=== PATIENT | male | born 1980 | race Caucasian/White ===

== ENCOUNTER 2019-11-26 07:53 | Emergency (ER) | payer MEDICAID ==
[~2019-11-26] VITALS: Ht 162.6 cm; Wt 72.6 kg
[~2019-11-26 07:53] MED LIST: FOL1 PO; THI100 PO
[2019-11-26 08:21] VITALS: Ht 162.6 cm; Wt 72.6 kg
[2019-11-26 09:03] LABS: BASOPHIL % 0.8 % (0-2); PLATELET COUNT 153 x10^3mcL (130-400); RED CELL DISTRIBUTION WIDTH 13.3 % (11.5-14.5)
[2019-11-26 09:27] LABS: CALCIUM 8.4 mg/dL (8.5-10.1); CHLORIDE SERUM 98 mmol/L (98-107); CREATININE SERUM 0.8 mg/dL (0.7-1.3); GFR1 > 60 mL/min; GLUCOSE SERUM 135 mg/dL (74-106); POTASSIUM SERUM 3.7 mmol/L (3.5-5.1); SODIUM SERUM 135 mmol/L (136-145)
[2019-11-26 09:32] LABS: ALBUMIN 3.8 g/dL (3.4-5.0); ALKALINE PHOSPHATASE 196 U/L (46-116); ALT/SGPT 225 U/L (16-63); AST/SGOT 245 U/L (15-37); BILIRUBIN TOTAL 1.5 mg/dL (0.20-1.00); TOTAL PROTEIN, SERUM 7.4 g/dL (6.4-8.2)
[2019-11-26 10:20] VITALS: BP 125/74
== END 2019-11-26 10:20 | disposition home or self-care (01) ==
LOC: ED 07:53
PROVIDERS: Emergency Medicine
DX: K52.9 Noninfective gastroenteritis and colitis, unspecified (principal); R07.89 Other chest pain
CPT/HCPCS: J2405; Q0092

== ENCOUNTER 2020-01-06 05:06 | Emergency (ER) | payer MEDICAID ==
[2020-01-06 05:12] VITALS: Ht 162.6 cm
[2020-01-06 06:49] LABS: CALCIUM 8.1 mg/dL (8.5-10.1); CARBON DIOXIDE 28.9 mmol/L (21-32); CHLORIDE SERUM 97 mmol/L (98-107); CREATININE SERUM 0.8 mg/dL (0.7-1.3); GFR1 > 60 mL/min; GLUCOSE SERUM 125 mg/dL (74-106); POTASSIUM SERUM 3.2 mmol/L (3.5-5.1); SODIUM SERUM 137 mmol/L (136-145)
[2020-01-06 06:54] LABS: ALBUMIN 3.9 g/dL (3.4-5.0); ALKALINE PHOSPHATASE 131 U/L (46-116); ALT/SGPT 187 U/L (16-63); AST/SGOT 200 U/L (15-37); BILIRUBIN TOTAL 2.2 mg/dL (0.20-1.00); LIPASE 520 IU/L (73-393); TOTAL PROTEIN, SERUM 7.5 g/dL (6.4-8.2)
[2020-01-06 07:03] LABS: BASOPHIL % 0.3 % (0-2); PLATELET COUNT 160 x10^3mcL (130-400); RED CELL DISTRIBUTION WIDTH 12.8 % (11.5-14.5)
[2020-01-06 10:17] VITALS: BP 124/75
== END 2020-01-06 10:17 | disposition home or self-care (01) ==
LOC: ED 05:06
PROVIDERS: Emergency Medicine
DX: K52.9 Noninfective gastroenteritis and colitis, unspecified (principal); K85.20 Alcohol induced acute pancreatitis without necrosis or infection; Z20.828 Contact with and (suspected) exposure to other viral communicable diseases
CPT/HCPCS: J2405; J7030